=== PATIENT | female | born 1960 | race Two or more races ===

== ENCOUNTER 2019-07-10 11:50 | Inpatient (IN) | payer MEDICARE, OTHER ==
[~2019-07-10] VITALS: Ht 154.9 cm; Wt 73.5 kg
--- NOTE | 2019-07-10 11:56 | NUR ---
FILIPE FROM HOME C/O PSYCH MED CLEARANCE ON 515 HOLD FOR DTO, ADVISEMENT COMPLETED BY DEEPIKA BOB TODAY AT 1025. WHEREIN THEY RECEIVED A CALL FROM [id number] STATING THAT PATIENT WAS SCREAMING AND WAS DANGER TO HER ELDERLY PARENTS, NOT TAKING HER MEDICATIONS AND STATING "I WILL KILL EVERYONE". ALSO HAVING HALLUCINATIONS PER REPORT. TO ER BED 12, HOOKED TO MONITOR, CHANGED TO HOSP GOWN, WARM BLANKET PROVIDED, 1:1 SITTER AT BEDSIDE, KEPT PATIENT SAFE AND COMFORTABLE.
--- NOTE | 2019-07-10 11:57 | NUR ---
SEEN BY DR MARINO
[2019-07-10] MEDS ORDERED: QUET50TA79 PO (12:08)
[2019-07-10] MEDS ORDERED: DIVA-78 PO (12:08)
[2019-07-10] MEDS ORDERED: ENAL20TA PO (12:08)
[2019-07-10 12:21] LABS: BASOPHILS # (AUTO) 0.2 /CMM (0.0-0.2); BASOPHILS % (AUTO) 3.2 % (0.0-2.0); HEMATOCRIT 42 % (33-45); HEMOGLOBIN 13.7 g/dL (11.5-14.8); LYMPHOCYTES # (AUTO) 0.6 /CMM (0.8-4.8); LYMPHOCYTES % (AUTO) 10.7 % (20.0-44.0); MEAN CORPUSCULAR HGB CONC 33 g/dl (31.0-36.0); MEAN CORPUSCULAR VOLUME 87 fL (82-100); MONOCYTES # (AUTO) 0.1 /CMM (0.1-1.30); MONOCYTES % (AUTO) 1.9 % (2.0-12.0); NEUTROPHILS # (AUTO) 4.6 /CMM (1.8-8.9); NEUTROPHILS % (AUTO) 78.2 % (43.0-81.0); PLATELET COUNT (AUTO) 297 /CMM (150-450); RED BLOOD CELL COUNT(AUTO) 4.87 MIL/uL (4.0-5.2); WHITE BLOOD COUNT (AUTO) 5.9 K/uL (4.3-11.0)
[2019-07-10 12:30] LABS: CALCIUM, SERUM 9.5 mg/dL (8.5-10.1); CARBON DIOXIDE 26 mmol/L (21-32); CHLORIDE 102 mmol/L (98-107); CREATININE 0.8 mg/dL (0.6-1.3); GLUCOSE 124 mg/dL (74-106); POTASSIUM 4.4 mmol/L (3.5-5.1); SODIUM SERUM 138 mmol/L (136-145); UREA NITROGEN, BLOOD 11 mg/dL (7-18)
[2019-07-10 12:35] LABS: ALANINE AMINOTRANSFERASE 21 U/L (12-78); ALBUMIN 3.8 g/dL (3.4-5.0); ALCOHOL, BLOOD < 3 mg/dL (0-0); ALKALINE PHOSPHATASE 111 U/L (46-116); ASPARTATE AMINOTRANSFERASE 15 U/L (15-37); BILIRUBIN,DIRECT 0.1 mg/dL (0.0-0.2); BILIRUBIN,TOTAL 0.4 mg/dL (0.2-1.0); TOTAL PROTEIN, SERUM 7.9 g/dL (6.4-8.2)
[2019-07-10 12:36] LABS: ACETAMINOPHEN 0 ug/ml (10-30); SALICYLATE 0.5 mg/dL (2.8-20.0)
--- NOTE | 2019-07-10 12:46 | NUR ---
URINE SAMPLE SENT TO LAB
--- NOTE | 2019-07-10 12:52 | NUR ---
NURSING SUP GAVE [facility] 212-A.
--- NOTE | 2019-07-10 12:53 | NUR ---
MADE MD AWARE OF THE BP.
[2019-07-10 12:57] LABS: APPEARANCE,URINE CLEAR (CLEAR); BILIRUBIN,URINE NEGATIVE (NEGATIVE); BLOOD, URINE NEGATIVE Ery/uL (NEGATIVE); COLOR,URINE YELLOW (YELLOW); KETONES,URINE NEGATIVE (NEGATIVE); LEUKOCYTE ESTERASE ,URINE NEGATIVE (NEGATIVE); NITRITE, URINE NEGATIVE (NEGATIVE); PROTEIN,URINE NEGATIVE (NEGATIVE); UGLUCOSE NEGATIVE (NEGATIVE); UROBILINOGEN,URINE 0.2 EU/dL (0.2)
[2019-07-10] MEDS ORDERED: BENAZEPRIL HCL 10 MG TABLET ONE (13:07)
[2019-07-10] MEDS: BENAZEPRIL HCL 20 MG TABLET PO SCH ×2 (13:12→13:24)
--- NOTE | 2019-07-10 13:17 | NUR ---
REPORT GIVEN TO GUILLERMINA JACQUES OF [facility]
--- NOTE | 2019-07-10 13:26 | NUR ---
TRANSFERRED TO [facility] VIA WHEELCHAIR BY TECH
[2019-07-10] MEDS ORDERED: BENAZEPRIL HCL 5 MG TABLET PO SCH (13:30)
[2019-07-10] MEDS ORDERED: BENAZEPRIL HCL 20 MG TABLET PO SCH (13:30)
--- NOTE | 2019-07-10 13:30 | NUR ---
INSIDE SOLAR SALES CONSULTANT NOTE- PT ADMITTED TO [facility] VIA WCR FROM ER ON 5150 DTO. PT STATED SHE WILL 'KILL HER FAMILY' . SHE LIVES AT HOME WITH FAMILY. ON FACE TO FACE ASSESSMENT, PT ALERT ORIENTED TO PERSON PLACE. CONFUSED ABOUT SITUATION AND MINIMIZES. PT TANGENTIAL THOUGHT PROCESS, LEAPING FROM TOPIC TO TOPIC NOT MAKING TOO MUCH SENSE. AFFECT APPROPRIATE. PT STATES "I SEE THINGS SOMETIMES. I SHINE" DENIES SI HI AH VH. MRSA SAMPLE TAKEN IN ED. PT HAS NKA. VS -B/P- 127/86, HR- 98 RR- 20 T -98.0 SATURATION 97% RA. SKIN CHECK DONE BY FEMALE RN. SKIN INTACT. VALUABLES INVENTORIED BY CLEAR COAT SPRAYER, PT RIGHTS PAMPHLET AND ORIENTATION TO UNIT COMPLETED. LUNCH BROUGHT FOR PT. AWARE OF ADMISSION AND ORDERS RECEIVED AND COMPLIED WITH. PROVIDE SAFE THERAPEUTIC ENVIRONMENT. MONITOR AND ASSIST.
[2019-07-10] MEDS ORDERED: MAG HYDROX/AL HYDROX/SIMETH 30 ML UDC PO PRN (14:00)
[2019-07-10] MEDS ORDERED: MAGNESIUM HYDROXIDE 30 ML UDC PO PRN (14:00)
[2019-07-10] MEDS ORDERED: BLOOD SUGAR DIAGNOSTIC 1 EACH STRIP IN ONE (14:00)
[2019-07-10] MEDS ORDERED: ACETAMINOPHEN 325 MG TABLET PO PRN (14:00)
[2019-07-10] MEDS ORDERED: TEMAZEPAM 7.5 MG CAPSULE PO PRN (14:00)
[2019-07-10] MEDS ORDERED: LORAZEPAM 0.5 MG TABLET PO PRN (14:00)
[2019-07-10 16:00] VITALS: BP 122/60
[2019-07-10 21:05] VITALS: BP 113/75
--- NOTE | 2019-07-10 21:59 | NUR ---
GPS-RN NOTE: INSOMNIA PT. C/O INABILITY TO SLEEP. ADMINISTERED RESTORIL 7.5MG PO ORDERED PER PT'S REQUEST. WILL CONTINUE TO MONITOR FOR PT'S SAFETY.
[2019-07-11 07:02] LABS: ALBUMIN 3.4 g/dL (3.4-5.0); BILIRUBIN,TOTAL 0.5 mg/dL (0.2-1.0); CALCIUM, SERUM 9.4 mg/dL (8.5-10.1); CREATININE 0.9 mg/dL (0.6-1.3); POTASSIUM 4.6 mmol/L (3.5-5.1); TOTAL PROTEIN, SERUM 7.3 g/dL (6.4-8.2)
[2019-07-11 07:08] LABS: THYROID STIMULATING HORMONE 4.748 uIU/mL (0.358-3.74)
[2019-07-11 08:00] VITALS: BP 116/78
[2019-07-11] MEDS: BENAZEPRIL HCL 20 MG TABLET PO SCH (09:00)
--- NOTE | 2019-07-11 09:00 | NUR ---
RN NOTE- PT IN ROOM ISOLATIVE CALM DIRECTABLE. NO BEHAVIORAL ISSUES. DENIES SI HI AH VH AT PRESENT. PO INTAKE GOOD. MONITOR AND PROVIDE THERAPEUTIC ENVIRONMENT
--- NOTE | 2019-07-11 15:04 | NUR ---
Group Note: SW encouraged the pt to participate in group therapy on 07/11/19 at 2pm discussing discharge planning. Pt refused to attend the group and refused to speak to the SW regarding her discharge planning individually. Pt stated that she was sleepy and wanted to go back to sleep.
[2019-07-11] MEDS: risperiDONE 1 MG TABLET PO SCH ×2 (15:55→21:20)
[2019-07-11 16:00] VITALS: BP 139/66
[2019-07-11] MEDS: ENALAPRIL MALEATE (10 MG) 10 MG TABLET PO SCH (17:30)
[2019-07-11 20:08] VITALS: BP 105/61
[2019-07-11] MEDS: BENZTROPINE MESYLATE (1 MG) 1 MG TABLET PO SCH (21:00)
[2019-07-11] MEDS: DIVALPROEX SODIUM 500 MG TABLET.DR PO SCH (21:00)
[2019-07-11] MEDS: ATORVASTATIN 10 MG TABLET PO SCH (21:22)
--- NOTE | 2019-07-11 22:38 | NUR ---
NURSES NOTES: BEHAVIOR PATIENT NOTED TO BE IN THE ROOM AT THE START OF THE SHIFT. DURING MEDICATION ADMINISTRATION- PATIENT TOLD THE NURSE THAT SHE DOESNT NEED MEDICATION BECAUSE SHE IS WELL, AND THAT SHE WILL BE OUT THERE TO CATCH THE PEOPLE. WHEN ASKED "HOW ARE YOU DOING?" PATIENT RESPONDED " YOU THINK YOU'RE WELL? I'M BETTER THAN YOU. " DON'T TALK TO ME, DON'T GO INTO MY ROOM". LIMIT SETTING DONE. PATIENT THEN REDIRECTED BY STAFF. WILL CONTINUE TO MONITOR PATIENT'S BEHAVIOR.
[2019-07-12 08:00] VITALS: BP 133/64
[2019-07-12] MEDS: risperiDONE 1 MG TABLET PO SCH ×2 (09:00→21:29)
--- NOTE | 2019-07-12 09:43 | NUR ---
Family Contact: SW called the pts brother in law, Janna ([phone]), and left a voicemail stating that she would like to discuss the pts initial discharge and treatment plan.
--- NOTE | 2019-07-12 13:44 | NUR ---
Family Contact: SW called the pts brother in law, Janna ([phone]), and left a voicemail stating that she would like to discuss the pts initial discharge and treatment plan.
--- NOTE | 2019-07-12 15:17 | NUR ---
Group Note: SW encouraged the pt to participate in group therapy on 07/12/19 at 2pm discussing urges. Pt refused to attend the group and stated that she does not need to talk about this topic and stated, "I am a normal person. Do not act like I have any problems." Pt stated that she did not want to talk to the SW anymore.
[2019-07-12 16:00] VITALS: BP 117/75
[2019-07-12] MEDS: ENALAPRIL MALEATE (10 MG) 10 MG TABLET PO SCH (17:08)
[2019-07-12 20:09] VITALS: BP 140/75
[2019-07-12] MEDS: BENZTROPINE MESYLATE (1 MG) 1 MG TABLET PO SCH (21:29)
[2019-07-12] MEDS: ATORVASTATIN 10 MG TABLET PO SCH (21:29)
[2019-07-12] MEDS: DIVALPROEX SODIUM 500 MG TABLET.DR PO SCH (21:29)
[2019-07-13 08:00] VITALS: BP 126/58
[2019-07-13] MEDS: risperiDONE 1 MG TABLET PO SCH ×2 (08:10→21:00)
--- NOTE | 2019-07-13 09:26 | NUR ---
Family Contact: SW called the pts brother in law, Janna ([phone]), at an alternative number and left a voicemail stating that she would like to discuss the pts initial discharge and treatment plan.
--- NOTE | 2019-07-13 11:54 | NUR ---
Family Contact: Ps brother in law, Janna ([phone]), called the SW and stated that this number would be the best number to reach him at. SW stated that the pt has not been taking her medications here in the hospital and the pts brother in law stated that was the same issue when the pt is at home. SW explained that a Riese process will begin for the pt and inquired about the discharge plan. Pts brother in law stated that they want the pt to be discharged to a SNF because she makes it an unsafe environment for the pts elderly parents when she is present.
--- NOTE | 2019-07-13 12:56 | NUR ---
Initial Discharge Plan: Pt currently resides in her home with her parents located at [address] [place] [address]; ([phone]). Per pt, she would like to return to her home. Per pts family, they feel it is an unsafe environment when she is present. SW will work with the pt and the MD regarding appropriate discharge planning. SW will form a safe and proper discharge.
[2019-07-13 16:00] VITALS: BP 139/74
[2019-07-13 17:25] VITALS: BP 121/77
[2019-07-13] MEDS: ENALAPRIL MALEATE (10 MG) 10 MG TABLET PO SCH (17:26)
--- NOTE | 2019-07-13 19:46 | NUR ---
NURSES NOTES: RECEIVED PATIENT IN BED, AWAKE , ALERT, PARANOID , ANXIOUS, EASILY AGITATED ,DISORGANIZED,SUSPICIOUS,TANGENTIAL THOUGHTS , NO COMPLAINS OF PAIN OR DISCOMFORT AT THIS TIME, NEEDS FREQUENTLY REDIRECTIONS ,ENCOURAGED PT. TO EXPRESS FEELING SAFETY AND FALL PRECAUTIONS OBSERVED. Q15 MIN CHECKS CONTINUED. WILL CONTINUE TO MONITOR PATIENT FOR MOOD, SAFETY AND BEHAVIOR.
[2019-07-13 20:23] VITALS: BP 112/69
[2019-07-13] MEDS: DIVALPROEX SODIUM 500 MG TABLET.DR PO SCH (21:00)
[2019-07-13] MEDS: ATORVASTATIN 10 MG TABLET PO SCH (21:01)
[2019-07-13] MEDS: BENZTROPINE MESYLATE (1 MG) 1 MG TABLET PO SCH (21:01)
[2019-07-14] MEDS: risperiDONE 1 MG TABLET PO SCH ×2 (07:57→21:16)
[2019-07-14 08:00] VITALS: BP 119/83
--- NOTE | 2019-07-14 15:52 | NUR ---
Individual Note: In lieu of group therapy due to COVID 19, SW met with the pt at bedside and attempted to speak to her regarding her discharge plan. Pt refused to participate and stated that she wanted to return to her home and does not want to speak to anyone. SW attempted to tell the pt that once she takes her medications and is considered stable she will be discharged but the pt asked the SW to leave her room.
[2019-07-14 16:00] VITALS: BP 151/70
[2019-07-14] MEDS: ENALAPRIL MALEATE (10 MG) 10 MG TABLET PO SCH (18:00)
--- NOTE | 2019-07-14 20:05 | NUR ---
GPS/HEEL SPRAYER FIRST NOTES: PT. LAYING IN BED RESTING. NO DISTRESS OR AGITATION NOTED. QUIET AT THIS TIME. NO C/O PAIN OR DISCOMFORT. SAFETY ENVIRONMENT OBSERVED AT ALL TIMES. WILL CONTINUE TO MONITOR Q 15 MIN FOR SAFETY AND BEHAVIOR.
[2019-07-14 20:42] VITALS: BP 124/73
[2019-07-14] MEDS: ATORVASTATIN 10 MG TABLET PO SCH (21:16)
[2019-07-14] MEDS: BENZTROPINE MESYLATE (1 MG) 1 MG TABLET PO SCH (21:16)
[2019-07-14] MEDS: DIVALPROEX SODIUM 500 MG TABLET.DR PO SCH (21:16)
[2019-07-15 08:00] VITALS: BP 99/76
[2019-07-15] MEDS: risperiDONE 1 MG TABLET PO SCH ×2 (08:10→21:31)
--- NOTE | 2019-07-15 09:00 | NUR ---
RN NOTE- PT IN ROOM, ISOLATIVE QUIET POOR EYE CONTACT, LIMITED INTERACTION W THIS RN. PO INTAKE FAIR. MED COMPLIANT DENIES SI HI AH VH NO BEHAVIORAL ISSUES AT PRESENT
--- NOTE | 2019-07-15 12:34 | NUR ---
SNF Referral: RAQUEL faxed a referral to [facility] with attn to Mohan and MARIA ELENA to the fax number: [phone].
--- NOTE | 2019-07-15 15:35 | NUR ---
SNF Contact: Mohan ([phone]) from [facility] contacted the SW and stated that the pt was not accepted to their facility.
[2019-07-15 16:00] VITALS: BP 122/60
[2019-07-15] MEDS: ENALAPRIL MALEATE (10 MG) 10 MG TABLET PO SCH (17:06)
--- NOTE | 2019-07-15 19:55 | NUR ---
GPS RN NOTE: PATIENT AWAKE, ALERT AND ORIENTED X 2-3, CALM, COOPERATIVE, NEEDY, REDIRECTIBLE, VERBALIZED DEPRESSION, DENIES SI/HI, AH/VH, NO AGITATION NOTED AT THIS TIME, OFFERED SNACKS AND PATIENT APPRECIATED, WILL CONTINUE TO MONITOR Q15 MINS FOR SAFETY
[2019-07-15 20:00] VITALS: BP 139/80
[2019-07-15] MEDS: ATORVASTATIN 10 MG TABLET PO SCH (21:29)
[2019-07-15] MEDS: BENZTROPINE MESYLATE (1 MG) 1 MG TABLET PO SCH (21:29)
[2019-07-15] MEDS: DIVALPROEX SODIUM 250 MG TABLET.DR PO SCH (21:30)
[2019-07-16 08:00] VITALS: BP 129/69
--- NOTE | 2019-07-16 08:00 | NUR ---
GPS/RN OPENING NOTE: RECEIVED PATIENT AWAKE, ALERT AND ORIENTED X 2-3, CALM, COOPERATIVE, NEEDY, DENIES SI/HI, AH/VH, NO AGITATION NOTED AT THIS TIME, WILL CONTINUE TO MONITOR Q15 MINS FOR SAFETY
[2019-07-16] MEDS: risperiDONE 1 MG TABLET PO SCH ×2 (08:54→21:28)
[2019-07-16 16:00] VITALS: BP 115/61
[2019-07-16] MEDS: ENALAPRIL MALEATE (10 MG) 10 MG TABLET PO SCH (17:13)
[2019-07-16 20:00] VITALS: BP 102/63
[2019-07-16 20:10] VITALS: BP 102/63
[2019-07-16] MEDS: BENZTROPINE MESYLATE (1 MG) 1 MG TABLET PO SCH (21:27)
[2019-07-16] MEDS: DIVALPROEX SODIUM 250 MG TABLET.DR PO SCH (21:28)
[2019-07-16] MEDS: ATORVASTATIN 10 MG TABLET PO SCH (21:28)
[2019-07-17 08:00] VITALS: BP 108/59
[2019-07-17] MEDS: risperiDONE 1 MG TABLET PO SCH ×2 (08:23→21:13)
--- NOTE | 2019-07-17 09:31 | NUR ---
GPS RN NOTE: RECEIVED PATIENT RESTING IN ROOM, AWAKE ALERT. NO ACUTE DISTRESS NOTED.CALM AT THIS TIME COMPLIANT WITH MEDICATIONS WITHDRAWN, ISOLATIVE,.DENIES SI/HI/AVH AT THIS TIME. SAFETY PRECAUTIONS IMPLEMENTED. WILL CONTINUE TO MONITOR Q15MIN ROUNDS FOR SAFETY AND BEHAVIOR.
[2019-07-17 16:00] VITALS: BP 121/85
[2019-07-17] MEDS: ENALAPRIL MALEATE (10 MG) 10 MG TABLET PO SCH (17:19)
[2019-07-17 20:00] VITALS: BP 119/81
[2019-07-17 20:05] VITALS: BP 119/81
[2019-07-17] MEDS: BENZTROPINE MESYLATE (1 MG) 1 MG TABLET PO SCH (20:21)
[2019-07-17] MEDS: DIVALPROEX SODIUM 250 MG TABLET.DR PO SCH (21:13)
[2019-07-17] MEDS: ATORVASTATIN 10 MG TABLET PO SCH (21:13)
[2019-07-18 08:00] VITALS: BP 112/70
[2019-07-18] MEDS: risperiDONE 1 MG TABLET PO SCH ×2 (08:11→21:17)
--- NOTE | 2019-07-18 09:00 | NUR ---
RN NOTE- ISOLATIVE FOR THE MOST PART, RESTING IN ROOM, AWAKE ALERT. NO ACUTE DISTRES NOTED.CALM AT THIS TIME COMPLIANT WITH MEDICATIONS WITHDRAWN, ,. DENIES SI/HI/AVH AT THIS TIME. SAFETY PRECAUTIONS IMPLEMENTED. WILL CONTINUE TO MONITOR Q15MIN ROUNDS FOR SAFETY AND BEHAVIOR.
--- NOTE | 2019-07-18 09:09 | NUR ---
SNF Referral: RAQUEL faxed a referral to [facility] with attn to Rashid to the fax number: [phone].
--- NOTE | 2019-07-18 11:31 | NUR ---
SNF Contact: Virginia ([phone]) from [facility] contacted the SW and stated that the pt was accepted to their facility and SW stated that the pt has a tentative date for Thursday.
--- NOTE | 2019-07-18 15:38 | NUR ---
Individual Note: In lieu of group therapy due to COVID 19, the pt stated that she does not want to return to her home because her parents are scared of her and that she does not want to be taken to the hospital again. SW stated that she can assist with placement. 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
[2019-07-18 16:00] VITALS: BP 136/98
[2019-07-18] MEDS: ENALAPRIL MALEATE (10 MG) 10 MG TABLET PO SCH (17:43)
[2019-07-18 20:16] VITALS: BP 111/56
[2019-07-18] MEDS: BENZTROPINE MESYLATE (1 MG) 1 MG TABLET PO SCH (21:16)
[2019-07-18] MEDS: ATORVASTATIN 10 MG TABLET PO SCH (21:16)
[2019-07-18] MEDS: DIVALPROEX SODIUM 250 MG TABLET.DR PO SCH (21:16)
[2019-07-19 08:00] VITALS: BP 104/63
[2019-07-19] MEDS: risperiDONE 1 MG TABLET PO SCH ×2 (09:25→21:26)
--- NOTE | 2019-07-19 12:04 | NUR ---
Family Contact: SW called the pts brother in law, Janna ([phone]), and informed him that the pt is going to be discharged the following day to [facility].
--- NOTE | 2019-07-19 12:29 | NUR ---
Individual Note: In lieu of group therapy due to COVID 19, the SW stated that she will be discharged to [facility]. SW stated that she cannot be feel comfortable at home and therefore she will be placed to the nursing center. Pt did not seem to understand and stated that her family would pick her up. Pt appeared to be confused and disorganized.
[2019-07-19 16:00] VITALS: BP 111/65
[2019-07-19] MEDS: ENALAPRIL MALEATE (10 MG) 10 MG TABLET PO SCH (17:36)
[2019-07-19 20:19] VITALS: BP 115/71
[2019-07-19] MEDS: ATORVASTATIN 10 MG TABLET PO SCH (21:25)
[2019-07-19] MEDS: BENZTROPINE MESYLATE (1 MG) 1 MG TABLET PO SCH (21:25)
[2019-07-19] MEDS: DIVALPROEX SODIUM 250 MG TABLET.DR PO SCH (21:26)
--- NOTE | 2019-07-20 05:37 | NUR ---
GPS RN NOTE: PT WAS CALM AND COOPERATIVE. MED COMPLIANT. V/S WNL. NO BEHAVIORAL ISSUES THIS SHIFT. PT TO DC TODAY @ 1100 TO [facility]. WILL CONTINUE TO MONITOR AND ENDORSE TO AM SHIFT.
[2019-07-20 08:00] VITALS: BP 131/55
[2019-07-20] MEDS: risperiDONE 1 MG TABLET PO SCH (08:21)
--- NOTE | 2019-07-20 08:38 | NUR ---
GPS RN NOTE; RECEIVED PATIENT IN AWAKE IN BED. PATIENT IS AOX3. ABLE TO MAKE NEEDS KNOWN. AMBULATORY WITH STEADY GAIT. WENT BACK TO SLEEP AFTER BREAKFAST. COMPLIANT WITH MEDICATION ADMINISTRATION AND PLAN OF CARE. DENIES SI/HI AND VAH. NO SIGNS OF DISTRESS OR AGITATION NOTED THIS AM. NO BEHAVIORAL ISSUES NOTED. PLAN IS TO D/C TODAY. BED IN LOCKED POSITION, LOW, WITH 2 SIDE RAILS UP FOR SAFETY. WILL CONTINUE TO MONITOR Q15 FOR MOOD, SAFETY AND BEHAVIOR.
--- NOTE | 2019-07-20 09:08 | NUR ---
WOUND CARE CONSULT: PT PRESENTS WITH INTACT SKIN AND AREA OF PEELING SKIN ON LEFT FOOT. NO DRAINAGE OR ERYTHEMA NOTED. WILL SEE PRN.
--- NOTE | 2019-07-20 10:15 | NUR ---
Individual Note: SW spoke to the pt and provided her with a note stating that she has been hospitalized so that the pt can present that to the disabilities office.
--- NOTE | 2019-07-20 10:16 | NUR ---
SNF Referral: SW faxed a COVID and SI/HI clearance to [facility] with attn to Rashid to the fax number: [phone].
--- NOTE | 2019-07-20 13:13 | NUR ---
GPS RN NOTE: DISCHARGE PATIENT IS A 59 YEAR OLD FEMALE DISCHARGED TO [facility] ([facility] PATIENT IS IN STABLE CONDITION. VSS. NO ACUTE DISTRESS NOTED. NO COMPLAINTS. COMPLIANT WITH MEDICATION MANAGEMENT. COOPERATIVE WITH PLAN OF CARE. PSYCHIATRIC TREATMENT PLANS MET. MEDICAL TREATMENT PLANS DEFERRED FOR CONTINUAL MONITORING. DENIES SI/HI VAH AT THE TIME OF DISCHARGE. SKIN CHECK DONE WITH WOUND PICTURES IN CHART. EDUCATED PATIENT ABOUT AFTERCARE WITH COPY PROVIDED. RETURNED PERSONAL BELONGINGS TO PATIENT. MEDICATIONS RECONCILED WITH DR GUSMAN ALONG WITH PSYCHIATRIC DISCHARGE ORDERS. MEDICAL MEDICATIONS RECONCILED WITH MANJU ARMSTRONG NP. DISCHARGE PAPERWORK SIGNED. FOR FOLLOW UP WITH PSYCHIATRIST AND DEVICE PROCESSING ENGINEER WITHIN 1 WEEK. PATIENT LEFT THE [facility] VIA AMBULANCE AT 1305. TRIP NUMBER: [id number]
--- NOTE | 2019-07-20 13:31 | NUR ---
Discharge Note: Pt was discharged to [facility] ([facility]) located at [address] [place] [address]; ([phone]). Pt was transported via ambulance at 11AM. SW called the pts brother in law, Janna ([phone]), and informed him of the placement. Upon discharge, the pt appeared to be alert and oriented x4 (time, place, self and situation). Pt appeared to be in an euthymic mood and presented with a calm affect. Pt appeared to be ambulatory with a steady gait and appeared to be well groomed. Pt denied both suicidal and homicidal ideation as well as auditory and visual hallucinations. Pt will be under the care of her psychiatrist, Dr. Shelly Mendenhall, located at [address] [address]; and customer service administrator, Dr. Vergara, located at [address] [place] [address]; .
== END 2019-07-20 13:05 | DRG 885 ==
LOC: ER 11:58 → GPS 13:01
PROVIDERS: ADMIT Psychiatry & Neurology Psychosomatic Medicine; ATTEND Registered Nurse
DX: F25.0 Schizoaffective disorder, bipolar type (principal); F29 Unspecified psychosis not due to a substance or known physiological condition; F41.9 Anxiety disorder, unspecified; E66.9 Obesity, unspecified; E78.5 Hyperlipidemia, unspecified; I10 Essential (primary) hypertension; Z68.30 Body mass index [BMI] 30.0-30.9, adult
CPT/HCPCS: 36415; 80048-TC; 80053-TC; 80061-TC; 80076-TC; 80164-TC; 80305; 81000-TC; 82962-TC; 84443-TC; 85025-TC; 87081-TC; G0480